=== PATIENT | female | born 1985 | race Caucasian/White ===

== ENCOUNTER 2019-05-10 09:23 | Outpatient (CLI) | payer OTHER, SELFPAY ==
[2019-05-10] VITALS (9 sets, daily range): BP systolic 119–138; BP diastolic 80–93; PULSE 90–120
[2019-05-10 10:01] LABS: Basophils Percent Auto 0.2 % (0.2-1.2); Eosinophils Absolute Auto 0.1 K/mm3 (0-0.3); Eosinophils Percent Auto 0.5 % (0-4.4); Hematocrit 36.2 % (37.0-47.0); Hemoglobin 11.9 g/dL (12.0-15.0); Immature Granulocyte Absolute 0.08 K/mm3 (0.00-0.031); Immature Granulocyte Percent A 0.8 % (0-0.5); Lymphocytes Absolute Auto 1.47 K/mm3 (0.9-3.2); Lymphocytes Percent Auto 14.4 % (18.3-44.2); Mean Corpuscular HGB Conc 32.9 g/dl (32-36); Mean Corpuscular Hemoglobin 29.8 pg (26-34); Mean Corpuscular Volume 90.5 fl (80-100); Mean Platelet Volume 11.5 fl (7.4-10.4); Monocytes Absolute Auto 0.8 K/mm3 (0.1-0.6); Monocytes Percent Auto 7.8 % (2.6-8.5); Neutrophils Absolute Auto 7.8 K/mm3 (1.3-6.7); Neutrophils Percent Auto 76.3 % (45.5-73.1); Platelet Count Result 167 k/mm3 (150-375); Red Cell Distribution Width 13.8 % (11.5-14.5); White Blood Count 10.2 K/mm3 (4.5-10.0)
[2019-05-10 10:11] LABS: Creatinine Urine 25.8 mg/dL; Total Protein Urine Random 12 mg/dL
[2019-05-10 10:14] LABS: Alanine Aminotransferase 12 U/L (4-35); Albumin Level 3.6 g/dL (3.5-5.1); Alkaline Phosphatase 166 U/L (38-126); Aspartate Amino Transferase 18 U/L (14-36); Bilirubin,Total 0.2 mg/dL (0.2-1.3); Blood Urea Nitrogen 11 mg/dL (7-17); Calcium 9.4 mg/dL (8.4-10.2); Carbon Dioxide 23 mmol/L (22-30); Chloride 103 mmol/L (98-107); Estimated Glomerular Filt Rate > 60; Glucose 79 mg/dL (65-105); Potassium 4.1 mmol/L (3.4-5.0); Sodium 134 mmol/L (137-145); Uric Acid 5.1 mg/dL (2.5-7.5)
[2019-05-10 11:38] LABS: Add Urine Microscopic? NO; Appearance Urine Clear (Clear); Bilirubin Urine Negative (Negative); Blood Urine Negative (Negative); Color Urine Straw (Yellow); Glucose Urine UA Negative (Negative); Ketones Urine Negative (Negative); Leukocyte Esterase Ur Negative LEU/UL (NEGATIVE); Nitrate Urine Negative (Negative); Protein Urine Negative (Negative); Specific Grav Ur 1.006 (1.001-1.035); Urobilinogen Urine Negative mg/dL (<2.0)
--- NOTE | 2019-05-10 12:17 | PC.NURSE ---
0923-Pt was sent over from 's office after having an elevated bp. [facility] labs ordered. Pt denies headache, visual issues, increase in swelling,or right upper epigastric pain.
--- NOTE | 2019-05-10 12:18 | PC.NURSE ---
1130-KJaswinder GOMEZ on unit, reviewed labs order received to discharge pt home and set her up for induction tomorrow morning
== END 2019-05-10 11:35 | disposition home or self-care (01) ==
LOC: ANHOBOP 09:31 → ANHOBPP 09:34
PROVIDERS: Advanced Practice Midwife; PCP Internal Medicine; Visit Provider Obstetrics & Gynecology
DX: O13.9 Gestational [pregnancy-induced] hypertension without significant proteinuria, unspecified trimester (principal); Z3A.00 Weeks of gestation of pregnancy not specified
CPT/HCPCS: 36415; 59025; 80053; 81003; 82570; 84156; 84550; 85025; 87086; 87088; 99199

== ENCOUNTER 2019-05-11 06:55 | Inpatient (IN) | payer OTHER, SELFPAY ==
[2019-05-11] VITALS (183 sets, daily range): BP systolic 98–154; BP diastolic 59–121; PULSE 78–166; TEMP 36.3–37; O2SAT 93–100; BMI 31.0
[2019-05-11 07:40] LABS: Basophils Percent Auto 0.3 % (0.2-1.2); Eosinophils Percent Auto 0.2 % (0-4.4); Hemoglobin 12.8 g/dL (12.0-15.0); Immature Granulocyte Absolute 0.06 K/mm3 (0.00-0.031); Immature Granulocyte Percent A 0.6 % (0-0.5); Lymphocytes Absolute Auto 1.25 K/mm3 (0.9-3.2); Lymphocytes Percent Auto 12.7 % (18.3-44.2); Mean Corpuscular HGB Conc 32.8 g/dl (32-36); Mean Corpuscular Hemoglobin 29.8 pg (26-34); Mean Corpuscular Volume 90.7 fl (80-100); Mean Platelet Volume 11.7 fl (7.4-10.4); Monocytes Absolute Auto 0.6 K/mm3 (0.1-0.6); Monocytes Percent Auto 6.4 % (2.6-8.5); Neutrophils Absolute Auto 7.9 K/mm3 (1.3-6.7); Neutrophils Percent Auto 79.8 % (45.5-73.1); Platelet Count Result 192 k/mm3 (150-375); Red Cell Distribution Width 13.9 % (11.5-14.5); White Blood Count 9.9 K/mm3 (4.5-10.0)
[2019-05-11] MEDS: LACTATED RINGERS 1,000 ML 125 ML IV CONT ×3 (07:41→17:20)
--- NOTE | 2019-05-11 08:01 | LDADM ---
This patient, Analia Ramírez, was admitted to Labor/Delivery/Recovery 105 on 05/11/19 at 06:55. Plans for labor, pain management and were discussed with patient. Patient/family oriented to hospital policies and general routines including ID bracelet, bed and alarms, visiting hours, pain management, procedures, bathroom and other care routines, personal items, smoking policy, room service/diet and guest tray routines, security routines, and visiting hours. Patient/Family are encouraged to report perceived risks to care and to ask questions if they do not understand what they are told or what they should do. See OBIX for further documentation.
--- NOTE | 2019-05-11 08:33 | WPDOBADMIT ---
Obstetrics - Admit Note Admission Note: 33 y/o G1 @ 39 weeks here for elective induction of labor VSS Contractions irregular FHR category 1 Cervix 2/80/-2 AROM small amount of clear odorless fluid Anticipate Pt agreeable to delivery per SNM. record reviewed. No pertinent additions to the history and/or any subsequent changes in the physical findings that are not consistent with the expected course of the were found. Additions to the history and/or subsequent changes in the physical findings follow. None.
--- NOTE | 2019-05-11 13:17 | P.PNAN_ITS ---
Anes - Eval Pre Procedure Procedure: labor epidural Date/Time: 05/11/19 13:17 Surgeon: Eric Preop Diagnosis: Labor pain Pre Op Diagnosis: Induction of Labor Patient Data Age: 33 Gender: F Height: 1.6 m Weight: 79.5 kg Last Vital Signs Temp 36.8 C 05/11/19 10:31 Pulse 85 05/11/19 13:15 BP 124/84 05/11/19 13:15 Pulse Ox 98 05/11/19 13:15 Allergies Allergy/AdvReac Type Severity Reaction Status Date / Time No Known Allergies Allergy Verified 04/14/19 12:30 Home Medications Medication Instructions Recorded Confirmed Type PNV cmb#95-ferrous fumarate-FA 1 tablet PO DAILY 04/14/19 04/14/19 History [] Laboratory Tests 05/11/19 05/11/19 05/11/19 07:28 07:28 07:28 WBC 9.9 K/mm3 K/mm3 (4.5-10.0) RBC 4.30 M/mm3 M/mm3 (4.2-5.4) Hgb 12.8 g/dL g/dL (12.0-15.0) Hct 39.0 % % (37.0-47.0) MCV 90.7 fl fl (80-100) MCH 29.8 pg pg (26-34) MCHC 32.8 g/dl g/dl (32-36) RDW 13.9 % % (11.5-14.5) Plt Count 192 k/mm3 k/mm3 (150-375) MPV 11.7 fl H fl (7.4-10.4) Immature Gran % (Auto) 0.6 % H % (0-0.5) Neut % (Auto) 79.8 % H % (45.5-73.1) Lymph % (Auto) 12.7 % L % (18.3-44.2) [place] % (Auto) 6.4 % % (2.6-8.5) Eos % (Auto) 0.2 % % (0-4.4) Baso % (Auto) 0.3 % % (0.2-1.2) Lymph # (Auto) 1.25 K/mm3 K/mm3 (0.9-3.2) [place] # (Auto) 0.6 K/mm3 K/mm3 (0.1-0.6) Eos # (Auto) 0.0 K/mm3 K/mm3 (0-0.3) Baso # (Auto) 0.0 K/mm3 K/mm3 (0.0-0.1) Abs Immat Gran (auto) 0.06 K/mm3 H K/mm3 (0.00-0.031) Absolute Neuts (auto) 7.9 K/mm3 H K/mm3 (1.3-6.7) Absolute Nucleated RBC 0.0 K/mm3 K/mm3 (0.0-0.012) Nucleated RBC % 0.0 % % (0.0-0.2) RPR Pending Blood Type B Positive Antibody Screen Negative Patient hx anesthesia problems: none Family hx anesthesia problems: none [facility] Family History Family History (Updated 04/14/19 @ 12:32 by Serina Kay RN) Father High cholesterol Hypertension Grandparent Breast cancer Grandparent Hypertension Sibling Hypertension Social History Social History Smoking status: Never smoker Second hand tobacco smoke exposure: No Substance use: never Spiritual care concerns: No Exam Day of Procedure 05/11/19 13:17
[2019-05-12] VITALS (77 sets, daily range): BP systolic 104–148; BP diastolic 66–90; PULSE 81–135; RESP 16–18; TEMP 36.4–37.1; O2SAT 85–100
--- NOTE | 2019-05-12 00:36 | PM.IMHP ---
H&P: HPI History of Present Illness Chief complaint: Induction of Labor Narrative: Analia Ramírez is a 33 year old female @ 39w6d here for elective induction of labor. Review of Systems Review of Systems: All systems reviewed & are unremarkable except as noted in HPI and below PMFSH Family History Family History Father High cholesterol Hypertension Grandparent Breast cancer Grandparent Hypertension Sibling Hypertension Social History Social History Smoking status: Never smoker Second hand tobacco smoke exposure: No Substance use: never Spiritual care concerns: No Meds Home Medications and Allergies Home Medications Medication Instructions Recorded Confirmed Type PNV cmb#95-ferrous fumarate-FA 1 tablet PO DAILY 04/14/19 04/14/19 History [] Allergies Allergy/AdvReac Type Severity Reaction Status Date / Time No Known Allergies Allergy Verified 04/14/19 12:30 Vital Signs Vital Signs - 24 hr 05/11/19 07:19 05/11/19 07:45 05/11/19 08:00 Temperature 98.6 F Pulse Rate 108 H 108 H 98 Blood Pressure 134/96 H 139/98 H 134/85 Pulse Oximetry 05/11/19 08:15 05/11/19 08:30 05/11/19 08:45 Temperature Pulse Rate 99 91 97 Blood Pressure 128/93 H 133/91 H 121/85 Pulse Oximetry 05/11/19 09:00 05/11/19 09:16 05/11/19 09:31 Temperature Pulse Rate 94 109 H 91 Blood Pressure 128/90 126/79 135/81 Pulse Oximetry 05/11/19 09:45 05/11/19 10:00 05/11/19 10:15 Temperature Pulse Rate 86 85 82 Blood Pressure 141/86 H 136/88 138/91 H Pulse Oximetry 05/11/19 10:31 05/11/19 10:46 05/11/19 11:00 Temperature 98.2 F Pulse Rate 85 95 94 Blood Pressure 138/86 129/97 H 138/99 H Pulse Oximetry 05/11/19 11:15 05/11/19 11:30 05/11/19 11:45 Temperature Pulse Rate 92 91 92 Blood Pressure 135/90 129/88 141/92 H Pulse Oximetry 05/11/19 12:00 05/11/19 12:15 05/11/19 12:31 Temperature Pulse Rate 92 87 85 Blood Pressure 131/88 133/93 H 154/87 H Pulse Oximetry 05/11/19 12:45 05/11/19 13:00 05/11/19 13:05 Temperature Pulse Rate 88 90 Blood Pressure 135/87 135/94 H Pulse Oximetry 97 05/11/19 13:10 05/11/19 13:12 05/11/19 13:15 Temperature Pulse Rate 80 89 85 Blood Pressure 134/84 127/86 124/84 Pulse Oximetry 97 98 05/11/19 13:19 05/11/19 13:20 05/11/19 13:21 Temperature Pulse Rate 87 90 Blood Pressure 130/76 128/79 Pulse Oximetry 97 05/11/19 13:24 05/11/19 13:25 05/11/19 13:27 Temperature Pulse Rate 86 86 Blood Pressure 128/81 122/87 Pulse Oximetry 100 05/11/19 13:30 05/11/19 13:33 05/11/19 13:35 Temperature Pulse Rate 90 87 Blood Pressure 124/77 123/81 Pulse Oximetry 99 98 05/11/19 13:36 05/11/19 13:39 05/11/19 13:40 Temperature Pulse Rate 88 81 Blood Pressure 125/81 124/76 Pulse Oximetry 100 05/11/19 13:42 05/11/19 13:45 05/11/19 13:50 Temperature Pulse Rate 85 85 Blood Pressure 124/79 123/79 Pulse Oximetry 100 99 05/11/19 13:55 05/11/19 13:58 05/11/19 14:00 Temperature 97.5 F L Pulse Rate 87 Blood Pressure 119/81 Pulse Oximetry 98 100 05/11/19 14:05 05/11/19 14:10 05/11/19 14:15 Temperature Pulse Rate 80 Blood Pressure 114/78 Pulse Oximetry 99 100 100 05/11/19 14:20 05/11/19 14:25 05/11/19 14:30 Temperature Pulse Rate 89 Blood Pressure 117/79 Pulse Oximetry 100 100 99 05/11/19 14:35 05/11/19 14:40 05/11/19 14:45 Temperature Pulse Rate 82 Blood Pressure 116/78 Pulse Oximetry 100 99 100 05/11/19 14:50 05/11/19 14:55 05/11/19 15:00 Temperature Pulse Rate 84 Blood Pressure 118/80 Pulse Oximetry 100 99 100 05/11/19 15:05 05/11/19 15:10 05/11/19 15:15 Temperature Pulse Rate Blood Pressure Pulse Oximetry 99 100 99 05/11/19 15:16 05/11/19 15:20 05/11/19 15:25 Temperature Pulse Rate 92
--- NOTE | 2019-05-12 00:39 | WPDHPUPDATE1 ---
History and Physical Update Update Date/Time: 05/12/19 00:30 Pt progressed to complete and has now been pushing for 2.5 hours. She initially made progress but over the last hour progress has stalled. At 2 hours we discussed vs continued pushing. Pt wanted to continue pushing at that time. We have tried multiple positions with no success. Pt has decided she wants to proceed with section. I discussed risks of with patient. She agrees to proceed. Dr Reyes notified and c/s called. Necessary staff notified. History and Physical has been reviewed, including an updated exam of the patient. There are NO changes in the patient's condition. Risks, benefits, and alternatives have been discussed and questions answered. Patient agrees to proceed with procedure.
[2019-05-12] MEDS: ceFAZolin 2 GM/D5W 50 ML 2 GM/50 ML BAG IVPB (01:03)
--- NOTE | 2019-05-12 01:04 | PM.OP ---
Procedure Note - Brief Procedure Note - Brief Date of procedure: 05/12/19 Pre-op diagnosis: Induction of Labor Arrest of descent Post-op diagnosis: same Procedure performed: Primary LTCS Anesthesia: epidural Surgeon: Rosalva Reyes MD Estimated blood loss (mL): 430 Drains: Yes (Vora) Packing: No Pathology: yes Complications: No immediate complications Condition: stable Disposition: floor Findings: Female infant; cephalic (occiput posterior); Apgars 8/9; weight 5#15oz; normal uterus, tubes, and ovaries
--- NOTE | 2019-05-12 04:31 | OBPPTRN ---
Patient transferred to post room #286 via stretcher. Support person present. Oriented to unit, room, information board, rooming in, admission packet and security measures. Patient verbalizes understanding. Infant in first floor nursery warming up after bath.
[2019-05-12] MEDS: DEXTROSE 5%/0.45% SOD CHL 1,000 ML 125 ML IV CONT (05:45)
--- NOTE | 2019-05-12 06:42 | OP_ITS ---
DATE OF PROCEDURE: 05/12/2019 PREOPERATIVE DIAGNOSIS: Intrauterine at 39 weeks with arrest of descent. POSTOPERATIVE DIAGNOSIS: Intrauterine at 39 weeks with arrest of descent, occiput posterior presentation. PROCEDURE PERFORMED: Primary low transverse section via Pfannenstiel. ANESTHESIA: Epidural. ESTIMATED BLOOD LOSS: 430 mL. COMPLICATIONS: None. FINDINGS: Female infant in occiput posterior presentation. Apgars 8 and 9. Weight 5 pounds 15 ounces. Normal uterus, tubes, and ovaries. INDICATIONS: 33-year-old, G1, who was admitted on the morning of May 10 for induction of labor. She made it to complete dilation and pushed for about 2-1/2 hours with no descent of the head and significant caput. She was advised to proceed with , and she agreed and signed consent after the risks, benefits, complications, and alternatives were discussed. DESCRIPTION OF PROCEDURE: For the procedure, she was taken to the operating room, where epidural anesthesia was found to be adequate. She was prepared and draped in the normal sterile fashion in the dorsal supine position with a leftward tilt. A Pfannenstiel skin incision was made with a scalpel and extended to the underlying layer of fascia with the scalpel. The fascia was incised in the midline with a scalpel and extended laterally with the Schafer scissors. The underlying rectus muscles were dissected off bluntly and sharply. The peritoneum was entered bluntly and then extended inferiorly and superiorly with good visualization of the bladder. The bladder blade was inserted. The lower uterine segment was then incised with a scalpel and the incision was digitally stretched in a cephalocaudad direction. The 's head, which was noted to be occiput posterior and was delivered atraumatically. The shoulders and body were delivered easily. The cord was clamped x2 and cut and the was passed to the awaiting nurse. Cord gas and cord blood were obtained. The placenta was manually extracted. The uterus was exteriorized and cleared of all clots and debris. The uterine incision was closed using 0 Vicryl in a running locked fashion. A 2nd layer of the same suture was used for hemostasis and reinforcement. The uterus was then returned to the abdomen. The gutters were cleared of all clots and debris. The uterine incision was reinspected and found to be hemostatic. The rectus muscles were reapproximated using a 0 Vicryl [id number] suture. The rectus muscles were inspected. Any bleeding points were cauterized. The fascia was then closed using 0 Vicryl in a running fashion. The subcutaneous tissue was irrigated. Any bleeding points were cauterized and the skin was closed with Insorb absorbable ignacia. She tolerated the procedure well. Sponge, lap, needle, and instrument counts were correct x2 and she was taken to the recovery area in stable condition. Nicole I MT: Vangie
--- NOTE | 2019-05-12 07:30 | PC.NURSE ---
PT introductions made and plan of care discussed per post op c section, pain management, breast feeding, daily care activities. PT verbalized understanding of such care.
--- NOTE | 2019-05-12 07:37 | PM.OBPNVD ---
OB - PN: Subj Subjective Date/time seen: 05/12/19 07:37 Patient comments: no complaints, pain well controlled, incisional pain, tolerating diet and other (Lochia similar to menses); no flatus present [place] baby status: doing well OB - PN: Obj Data Labs CBC & Chem 7: 05/11/19 07:28 Labs: Laboratory Results - last 24 hr 05/11/19 05/11/19 07:28 07:28 WBC 9.9 RBC 4.30 Hgb 12.8 Hct 39.0 MCV 90.7 MCH 29.8 MCHC 32.8 RDW 13.9 Plt Count 192 MPV 11.7 H Immature Gran % (Auto) 0.6 H Neut % (Auto) 79.8 H Lymph % (Auto) 12.7 L [place] % (Auto) 6.4 Eos % (Auto) 0.2 Baso % (Auto) 0.3 Lymph # (Auto) 1.25 [place] # (Auto) 0.6 Eos # (Auto) 0.0 Baso # (Auto) 0.0 Abs Immat Gran (auto) 0.06 H Absolute Neuts (auto) 7.9 H Absolute Nucleated RBC 0.0 Nucleated RBC % 0.0 Blood Type B Positive Antibody Screen Negative OB - PN A/P Plan day: 0 (s/p C section, doing well) Plan: routine care Time Spent With Patient Time: Total time spent is greater than 50% in coordination of care (as documented) at patient's floor/unit and/or counseling patient: Time with patient: less than 15 minutes Exam Const: General: no acute distress Resp: Auscultation: clear to auscultation bilaterally Cardio: Rate: regular rate Rhythm: regular rhythm GI: Inspection: non-distended, incision (Intact without erythema, drainage, or induration) and other (Fundus firm and nontender at umbilicus) GI Palp: Yes abdominal tenderness (appropriate ) and Yes Soft to palpation Extrem: General: no edema
[2019-05-12 08:44] LABS: Rapid Plasma Reagin Non-Reactive (NonReactive)
[2019-05-12] MEDS: IBUPROFEN 600 MG TABLET PO ×2 (09:25→16:14)
[2019-05-12] MEDS: MULTIVIT/MIN/PREN/FOL AC/IRON TABLET 1 TAB PO (09:25)
[2019-05-12] MEDS: SIMETHICONE 80 MG TAB.CHEW PO ×2 (09:25→16:08)
[2019-05-12] MEDS: DOCUSATE SODIUM 100 MG CAPSULE PO ×2 (09:25→16:14)
[2019-05-12] MEDS: LANOLIN (LANSINOH) 7.5 GM CREAM 1 APPLIC TOPICAL (09:27)
--- NOTE | 2019-05-12 09:45 | PC.NURSE ---
Upon entering primary RN is assisting mother with nursing using the nipple shield. is sleepy and making no effort to suckle. Reviewed how the shield may assist with infant latch and feeding. Discussed nipple shield precautions and possible complications. Instructions given on application and cleaning of shield. Patient able to return demonstration on proper application of shield. Discussed the need to initiate pumping if continues to nurse with the shield. Patient verbalizes understanding. Reviewed infant feeding cues, frequencies, duration of feedings, feeding elimination flow sheet, and signs of adequate intake Demonstrated stimulation techniques to wake for feeding. Assisted with infant to breast. Reviewed positioning/alignment in football, holding breast in C hold and guided asymmetrical latch on. With shield in place, infant was able to latch correctly. Infant nursed eagerly with a few steady draws in bursts followed with long pausing and returning to sleep. Reviewed signs of a correct latch, effective nursing and suck swallow ratio. Infant was able to maintain latch without discomfort to mother. Minimal suckling noted. Nipple care reviewed. Instructed mother to call out for RN assistance if she is unable to latch for feeding or she has discomfort with nursing. Instructed feeding should be initiated three hours from start of last feeding or if feeding cues are noted before. Mother voiced understanding of information shared.
--- NOTE | 2019-05-12 10:00 | PC.NURSE ---
Suggested mother initiate a feeding plan to supplement after each feeding attempt of 15 mls EBM/formula, followed with 15 minutes of pumping. Parents are willing to supplement.
--- NOTE | 2019-05-12 10:20 | PC.NURSE ---
Breast pump provided due to ineffective feeding. Instructions given on breast pump care and usage, pumping schedule, nipple care, and collection and storage of breast milk. Encouraged [id number], breast massage and manual expression to stimulate supply. Pumping log provided and reviewed. Assessed patient for correct flange size, placement and draw. Patient verbalizes and demonstrates understanding of instructions.
[2019-05-12] MEDS: BENZOCAINE 20% AER SPR (*SP) 56 GM CAN 1 SPRAY (15:02)
[2019-05-12] MEDS: WITCH HAZEL 40 PADS 1 PAD (15:03)
[2019-05-13] MEDS: IBUPROFEN 600 MG TABLET PO ×2 (05:18→16:02)
[2019-05-13 05:21] LABS: Basophils Percent Auto 0.1 % (0.2-1.2); Eosinophils Absolute Auto 0.1 K/mm3 (0-0.3); Eosinophils Percent Auto 0.8 % (0-4.4); Hematocrit 30.6 % (37.0-47.0); Hemoglobin 9.9 g/dL (12.0-15.0); Immature Granulocyte Absolute 0.12 K/mm3 (0.00-0.031); Immature Granulocyte Percent A 0.8 % (0-0.5); Lymphocytes Absolute Auto 1.51 K/mm3 (0.9-3.2); Lymphocytes Percent Auto 10.5 % (18.3-44.2); Mean Corpuscular HGB Conc 32.4 g/dl (32-36); Mean Corpuscular Hemoglobin 29.7 pg (26-34); Mean Corpuscular Volume 91.9 fl (80-100); Monocytes Absolute Auto 0.7 K/mm3 (0.1-0.6); Monocytes Percent Auto 4.6 % (2.6-8.5); Neutrophils Percent Auto 83.2 % (45.5-73.1); Platelet Count Result 150 k/mm3 (150-375); Red Blood Count 3.33 M/mm3 (4.2-5.4); White Blood Count 14.4 K/mm3 (4.5-10.0)
[2019-05-13 08:00] VITALS: BP 117/76; PULSE 105; RESP 16; TEMP 36.7
--- NOTE | 2019-05-13 08:21 | WPDANLDNPN2 ---
Anes-Prog Note L&D-Neuraxial Date/Time: 05/13/19 08:21 Neuraxial medications: intrathecal PF morphine Opiod-related complaints: none Patient feedback: Patient satisfied with post-operative pain management.
--- NOTE | 2019-05-13 08:21 | WPDANLDPN2 ---
Anes-Prog Note L&D Date/Time: 05/13/19 08:21 Comfortable throughout: section Neuraxial method: spinal Epidural/Spinal procedure site: clean & non-tender Neuro status: Neuro function grossly intact. Cardiovascular status: normal Respiratory status: normal Airway patency: baseline Mental status: baseline Post-Op hydration status: normal Vital Signs: Last Vital Signs Temp 36.7 C 05/12/19 20:30 Pulse 110 H 05/12/19 20:30 Resp 16 05/12/19 20:30 BP 106/76 05/12/19 20:30 Pulse Ox 99 05/12/19 20:30 I/O: Intake & Output 05/12/19 05/13/19 05/13/19 23:59 07:59 15:59 Output Total 100 Balance -100 Post-procedural complaints: none Patient feedback: Patient satisfied with anesthetic care.
[2019-05-13] MEDS: DOCUSATE SODIUM 100 MG CAPSULE PO ×2 (09:10→16:01)
[2019-05-13] MEDS: MULTIVIT/MIN/PREN/FOL AC/IRON TABLET 1 TAB PO (09:10)
[2019-05-13] MEDS: POLYSACCHARIDE IRON COMPLEX 150 MG CAPSULE PO ×2 (09:10→16:01)
--- NOTE | 2019-05-13 09:51 | P.PNOB_ITS ---
OB - PN: Subj Subjective Date/time seen: 05/13/19 09:51 OB - PN: Obj Data Labs CBC & Chem 7: 05/13/19 05:13 Labs: Laboratory Results - last 24 hr 05/13/19 05:13 WBC 14.4 H RBC 3.33 L Hgb 9.9 L Hct 30.6 L MCV 91.9 MCH 29.7 MCHC 32.4 RDW 14.0 Plt Count 150 MPV 11.0 H Immature Gran % (Auto) 0.8 H Neut % (Auto) 83.2 H Lymph % (Auto) 10.5 L [place] % (Auto) 4.6 Eos % (Auto) 0.8 Baso % (Auto) 0.1 L Lymph # (Auto) 1.51 [place] # (Auto) 0.7 H Eos # (Auto) 0.1 Baso # (Auto) 0.0 Abs Immat Gran (auto) 0.12 H Absolute Neuts (auto) 12.0 H Absolute Nucleated RBC 0.0 Nucleated RBC % 0.0 OB - PN A/P Plan Plan: routine care Time Spent With Patient Time: Total time spent is greater than 50% in coordination of care (as documented) at patient's floor/unit and/or counseling patient: Review of Systems Review of Systems: All systems reviewed & are unremarkable except as noted in HPI and below Exam Narrative: Exam Narrative: Fundus firm and vaginal flow controlled Lower ext: trace edema. No redness, warmth, or tenderness. Negative homans. Const: General: comfortable Resp: Effort & Inspection: normal respiratory effort Cardio: Rate: regular rate GI: Auscultation: normal bowel sounds Psych: Appearance: grossly normal Mental Status: mental status grossly normal Affect: normal affect Attitude: cooperative Judgement: Good judgement present (Psych)
[2019-05-13 19:00] VITALS: BP 116/77; PULSE 98; RESP 16; TEMP 37.1; O2SAT 98
--- NOTE | 2019-05-13 19:31 | PC.NURSE ---
Patient viewed the discharge video Mother & Baby Care, The First Two Weeks . Patient was given the opportunity and encouraged to ask questions. Patient verbalized understanding of information shared and has been given the mother/baby guide for home reference.
--- NOTE | 2019-05-14 01:56 | PC.NURSE ---
Daylight Savings Time For Daylight Savings Time Beginning in the Spring - Clocks are moved ahead. For [facility], the time of change occurs at 0200 hrs. Time is taken from the fruit preserver. This entry on the patient's chart recognizes the change in time reflected during documentation. Example: 2 entries for vital signs may be charted for 0200 hrs.
[2019-05-14 07:55] VITALS: BP 103/69; PULSE 99; RESP 14; TEMP 36.6; O2SAT 100
[2019-05-14 08:15] VITALS: PULSE 99; RESP 14; O2SAT 100
[2019-05-14] MEDS: DOCUSATE SODIUM 100 MG CAPSULE PO (08:54)
[2019-05-14] MEDS: MULTIVIT/MIN/PREN/FOL AC/IRON TABLET 1 TAB PO (08:54)
[2019-05-14] MEDS: IBUPROFEN 600 MG TABLET PO (08:55)
[2019-05-14] MEDS: POLYSACCHARIDE IRON COMPLEX 150 MG CAPSULE PO (08:55)
--- NOTE | 2019-05-14 10:32 | PM.OBPNVD ---
OB - PN: Subj Subjective Date/time seen: 05/14/19 10:32 OB - PN: Obj Data Labs CBC & Chem 7: 05/13/19 05:13 OB - PN A/P Plan day: 2 Plan: routine care, discharge home and other (Follow up 1 week) Time Spent With Patient Time: Total time spent is greater than 50% in coordination of care (as documented) at patient's floor/unit and/or counseling patient: Review of Systems Review of Systems: All systems reviewed & are unremarkable except as noted in HPI and below Exam Const: General: comfortable and no acute distress Chest: Breast/axilla inspection: normal inspection of the breasts Resp: Effort & Inspection: normal respiratory effort Auscultation: clear to auscultation bilaterally Cardio: Rate: regular rate GI: Auscultation: normal bowel sounds Extrem: General: normal to inspection and no calf tenderness Psych: Appearance: grossly normal Affect: normal affect Attitude: cooperative Judgement: Good judgement present (Psych)
[2019-05-15 11:12] VITALS: BP 124/84; PULSE 96; RESP 20; TEMP 36.8; O2SAT 100
--- NOTE | 2019-05-17 04:28 | DS_ITS ---
DATE OF DISCHARGE: 05/14/2019 ADMISSION DIAGNOSES: Intrauterine , full term, for induction of labor. DISCHARGE DIAGNOSIS: Status post primary low transverse section due to arrest of descent. FOLLOWUP: Followup appointment will be in the office in 1 week. DISCHARGE MEDICATIONS: Include vitamin, ibuprofen, and [place] p.r.n. HOSPITAL COURSE: A 33-year-old who was admitted on the morning of May 10 for induction of labor. She did progress to complete dilation. She pushed for about 2-1/2 hours with minimal descent of the head and chose to proceed with section at that point. She had the in the flatcar whacker of May 11, which was uneventful. Her postoperative course was also uneventful. She was meeting all postoperative milestones and expressed the desire to be discharged home on postoperative day #2. So, she was sent home with the followup and medications as noted above. Nicole I MT: Vangie
== END 2019-05-14 13:50 | disposition home or self-care (01) | DRG 788 ==
LOC: ANHLDR 05-12 01:15 → ANHOB2 05-12 04:42
PROVIDERS: Admitting Provider Obstetrics & Gynecology; PCP Internal Medicine; Visit Provider Obstetrics & Gynecology
PROC: 10D00Z1 Extraction of Products of Conception, Low, Open Approach (ICD-10-PCS; CPT 59514; principal; 2019-05-12 00:50)
DX: O32.4XX0 Maternal care for high head at term, not applicable or unspecified (principal); O62.1 Secondary uterine inertia; O76 Abnormality in fetal heart rate and rhythm complicating labor and delivery; O69.82X0 Labor and delivery complicated by other cord entanglement, without compression, not applicable or unspecified; Z3A.39 39 weeks gestation of pregnancy; Z37.0 Single live birth
CPT/HCPCS: 36415; 85025; 86592; 86850; 86900; 86901; A9270; J0131; J0690; J2210; J2274; J2590; J2795; J7120

== ENCOUNTER 2021-06-29 14:42 | Emergency (ER) | payer OTHER, SELFPAY ==
[2021-06-29 14:46] VITALS: BP 123/84; PULSE 95; RESP 14; TEMP 37.2; O2SAT 100
--- NOTE | 2021-06-29 15:10 | ED.EYEPROB ---
HPI - Eye Problem General Chief complaint: Eye Problems Stated complaint: Eye Problem Time Seen by Provider: 06/29/21 14:56 Source: patient and RN notes reviewed Mode of arrival: ambulatory Limitations: no limitations History of Present Illness HPI Narrative: 35-year-old female presents with concern for contact lenses stuck in her eyes. She reports she put in a trial pair of contact lenses, a brand that she is never worn before. Reports she put them in yesterday has been unable to get them out. Reports she tried flushing without success. She denies any pain to her eyes. Reports her eyes are irritated. She denies vision changes chief complaint: foreign body Related Data Home Medications Medication Instructions Recorded Confirmed PNV cmb#95-ferrous fumarate-FA 1 tablet PO DAILY 04/14/19 04/14/19 [] Allergies Allergy/AdvReac Type Severity Reaction Status Date / Time No Known Allergies Allergy Verified 04/14/19 12:30 Review of Systems Review of Systems: CONSTITUTIONAL: Denies malaise, chills, sweats, or fever. EYES: Denies visual changes. Reports redness, irritation, foreign body to both eyes ENT: Denies rhinorrhea, congestion, sinus pain, otalgia or sore throat. SKIN: Denies rash or itching. NEUROLOGIC: Denies numbness, weakness, or headache. PSYCHIATRIC: Denies anxiety or depression. All systems reviewed & are unremarkable except as noted in HPI and below PMFSH Family History Family History Father High cholesterol Hypertension Grandparent Breast cancer Grandparent Hypertension Sibling Hypertension Social History Social History Smoking status: Never smoker Second hand tobacco smoke exposure: No Substance use: never Spiritual care concerns: No Comments At time of signature, agree with nursing past medical, surgical, social and family history. There is no relevant family history pertinent to the presenting complaint Exam Narrative: GENERAL: Well-appearing, well-nourished, and in no acute distress. HEAD: Normocephalic, atraumatic. EYES: PERRLA, sclera clear, and EOMI. No nystagmus. Bilateral conjunctivae and sclera injected. Upper and lower eyelid unremarkable, no periorbital edema noted. Contact lenses visible in both eyes ENT: Nares clear, turbinates pink, no rhinorrhea or epistaxis. Mucous membranes moist. TM pearly pena with sharp light reflex bilaterally; no tragal tenderness. NECK: Supple. CHEST: No respiratory distress. Speaks in full sentences. HEART: Regular rate and rhythm. SKIN: Warm, dry, no visible rash. NEURO: Alert and oriented x3. PSYCH: Normal mood and affect Course Course Emergency Course: Patient is aware of diagnosis, understands and agrees to treatment plan. Anticipatory guidance given. Patient agrees to follow-up as directed and is aware of reasons to seek care at the emergency department. Portions of this record may have been created with voice recognition software Level of Care: Express Care Visit Vital Signs Vital signs: Vital Signs Temperature 99.0 F 06/29/21 14:46 Pulse Rate 95 06/29/21 14:46 Respiratory Rate 14 06/29/21 14:46 Blood Pressure 123/84 06/29/21 14:46 Pulse Oximetry 100 06/29/21 14:46 Temperature 99.0 F 06/29/21 14:46 Pulse Rate 95 06/29/21 14:46 Respiratory Rate 14 06/29/21 14:46 Blood Pressure 123/84 06/29/21 14:46 Pulse Oximetry 100 06/29/21 14:46 Reviewed. Procedures FB Removal Eye Foreign Body #1: Foreign Body Removal Date: 06/29/21 Foreign Body Removal Time: 15:00 Time Out performed: Yes Location: eye (L) and eye (R) Topical anesthetic used: tetracaine Foreign body: other (Contact lenses) Evidence of corneal penetration: No Technique: cotton tip swab Procedure performed under: direct visualization with magnification Post-procedure medication: ophthalmic antibi
== END 2021-06-29 15:16 | disposition home or self-care (01) ==
PROVIDERS: Emergency Provider Nurse Practitioner; PCP Internal Medicine
DX: H18.823 Corneal disorder due to contact lens, bilateral (principal); T15.92XD Foreign body on external eye, part unspecified, left eye, subsequent encounter; T15.91XD Foreign body on external eye, part unspecified, right eye, subsequent encounter; X58.XXXD Exposure to other specified factors, subsequent encounter
CPT/HCPCS: 99213; A9270; G0463